=== PATIENT | female | born 1980 | race Caucasian/White ===

== ENCOUNTER 2017-04-17 15:26 | Inpatient (IN) | payer MEDICAID ==
[~2017-04-17] VITALS: Ht 154.9 cm; Wt 85.9 kg
[2017-04-17 19:11] LABS: BASOPHIL % 3.1 % (0-2); PLATELET COUNT 488 x10^3mcL (130-400); RED CELL DISTRIBUTION WIDTH 22.1 % (11.5-14.5)
[2017-04-17 19:32] LABS: ovalocyte/elliptocyte 1+; rbc morphology (normal/abnorm) ABNORMAL (NORMAL); target cell (codocyte) 2+
[2017-04-17 20:39] LABS: CALCIUM 8.8 mg/dL (8.5-10.1); CARBON DIOXIDE 26.6 mmol/L (21-32); CHLORIDE SERUM 103 mmol/L (98-107); CREATININE SERUM 0.6 mg/dL (0.6-1.0); GFR1 > 60 mL/min; GLUCOSE SERUM 96 mg/dL (74-106); SODIUM SERUM 137 mmol/L (136-145)
[2017-04-17 20:55] LABS: ALBUMIN 3.8 g/dL (3.4-5.0); ALKALINE PHOSPHATASE 72 U/L (46-116); ALT/SGPT 17 U/L (14-59); AST/SGOT 11 U/L (15-37); BILIRUBIN TOTAL 0.5 mg/dL (0.20-1.00); TOTAL PROTEIN, SERUM 7.4 g/dL (6.4-8.2)
[2017-04-17 22:48] VITALS: BP 106/57
[2017-04-17 22:51] LABS: T3 TOTAL 1.13 ng/mL
[2017-04-17 22:59] LABS: PHOSPHOROUS 3.7 mg/dL (2.5-4.9)
[2017-04-17 23:22] LABS: FREE T4 1.06 ng/dL (0.76-1.46); FREE THYROXINE INDEX 3.3 ug/dL (1.4-4.5); T4(THYROXINE) 9.4 ug/dL (4.7-13.3)
[2017-04-18 05:30] VITALS: BP 104/64
[2017-04-18 06:16] LABS: CALCIUM 8.2 mg/dL (8.5-10.1); CARBON DIOXIDE 23.9 mmol/L (21-32); CHLORIDE SERUM 106 mmol/L (98-107); CREATININE SERUM 0.6 mg/dL (0.6-1.0); GFR1 > 60 mL/min; GLUCOSE SERUM 93 mg/dL (74-106); SODIUM SERUM 140 mmol/L (136-145)
[2017-04-18 07:16] LABS: BASOPHIL % 0.7 % (0-2)
[2017-04-18 07:18] LABS: PLATELET COUNT 464 x10^3mcL (130-400); RED CELL DISTRIBUTION WIDTH 21.6 % (11.5-14.5)
[2017-04-18 07:22] LABS: rbc morphology (normal/abnorm) ABNORMAL (NORMAL); target cell (codocyte) 1+
[2017-04-18 07:23] LABS: ovalocyte/elliptocyte 1+
[2017-04-18 08:13] VITALS: BP 111/53
[2017-04-18 08:38] LABS: RED BLOOD CELLS 4.35 M/mm3 (4.10-5.10)
[2017-04-18 09:17] LABS: microscopic required? YES; urine erythrocyte 3+ (NEGATIVE)
[2017-04-18 10:52] LABS: AMPHETAMINE QUAL UR NONE DETECTED (NEG <=1000)
[2017-04-18 13:19] VITALS: BP 107/63
[2017-04-18 17:22] VITALS: BP 104/70
[2017-04-18 19:01] VITALS: BP 104/70
[2017-04-18 21:40] VITALS: BP 96/56
[2017-04-19 05:47] VITALS: BP 96/56
[2017-04-19 07:19] LABS: CARBON DIOXIDE 20.7 mmol/L (21-32); CHLORIDE SERUM 109 mmol/L (98-107); CREATININE SERUM 0.6 mg/dL (0.6-1.0); GFR1 > 60 mL/min; GLUCOSE SERUM 99 mg/dL (74-106); POTASSIUM SERUM 3.9 mmol/L (3.5-5.1); SODIUM SERUM 140 mmol/L (136-145)
[2017-04-19 08:36] LABS: BASOPHIL % 0.6 % (0-2)
[2017-04-19 08:40] LABS: PLATELET COUNT 458 x10^3mcL (130-400); RED CELL DISTRIBUTION WIDTH 21.4 % (11.5-14.5)
[2017-04-19 09:55] VITALS: BP 102/65
[2017-04-19] MEDS ORDERED: NATURAL IRON65 MG PO (11:14)
[2017-04-19 11:21] LABS: rbc morphology (normal/abnorm) ABNORMAL (NORMAL)
[2017-04-19] MEDS ORDERED: PROV5 PO (11:21)
[2017-04-19] MEDS ORDERED: VITC PO (11:21)
[2017-04-19] MEDS ORDERED: CIPRO500 MG PO (11:21)
[2017-04-19] MEDS ORDERED: LIPI20 PO (11:22)
[2017-04-19] MEDS ORDERED: COL100 PO (11:22)
[2017-04-19] MEDS ORDERED: LAC PO (11:23)
[2017-04-19] MEDS ORDERED: LOESTRIN 21 1/21 TAB PO (11:32)
[2017-04-19 12:16] VITALS: BP 102/65
== END 2017-04-19 15:55 | disposition home or self-care (01) | DRG 532 ==
LOC: ED 15:26 → MU 20:41 → DU 20:41 → MU 04-19 07:33
PROVIDERS: Emergency Medicine; ADMIT Family Medicine
DX: N93.8 Other specified abnormal uterine and vaginal bleeding (principal); N17.0 Acute kidney failure with tubular necrosis; D68.69 Other thrombophilia; E11.59 Type 2 diabetes mellitus with other circulatory complications; D69.59 Other secondary thrombocytopenia; D62 Acute posthemorrhagic anemia; N39.0 Urinary tract infection, site not specified; E78.5 Hyperlipidemia, unspecified; E66.9 Obesity, unspecified; Z68.35 Body mass index [BMI] 35.0-35.9, adult; Z79.1 Long term (current) use of non-steroidal anti-inflammatories (NSAID)
CPT/HCPCS: 82962; 83880; 84439; J1885; J2916; J7030; J7620; Q0092